=== PATIENT | male | born 1990 | race Caucasian/White ===

== ENCOUNTER → 2016-10-20 | Outpatient (CLI) | payer BC | LOC: SLEEP-COR 21:30 | DX: G47.33 Obstructive sleep apnea (adult) (pediatric) (principal) | CPT/HCPCS: 95810 ==

== ENCOUNTER → 2022-01-16 | Outpatient (CLI) | payer SELFPAY | LOC: HEART CORB 09:00 | DX: I47.1 Supraventricular tachycardia (principal); I07.1 Rheumatic tricuspid insufficiency; Z86.79 Personal history of other diseases of the circulatory system | CPT/HCPCS: 93306 ==